=== PATIENT | female | born 1935 | race Caucasian/White ===

== ENCOUNTER → 2017-08-31 | Outpatient (CLI) | payer MEDICARE ==
[2017-08-31 16:57] LABS: BUN/CREATININE RATIO 17.9 (6.0-26.0); CALCIUM 9.3 mg/dL (8.4-10.2); POTASSIUM 4.3 mmol/L (3.6-5.0)
== END ==
LOC: RAD 16:09
PROVIDERS: Family Medicine
DX: M79.671 Pain in right foot (principal); M25.571 Pain in right ankle and joints of right foot; M10.9 Gout, unspecified; I48.91 Unspecified atrial fibrillation; I10 Essential (primary) hypertension

== ENCOUNTER → 2017-09-15 | Outpatient (CLI) | payer MEDICARE ==
[2017-09-15 08:31] LABS: BUN/CREATININE RATIO 16.4 (6.0-26.0); POTASSIUM 4.3 mmol/L (3.6-5.0)
== END ==
LOC: LAB 08:02
PROVIDERS: Family Medicine
DX: I50.31 Acute diastolic (congestive) heart failure (principal)

== ENCOUNTER → 2019-08-19 | Outpatient (CLI) | payer MEDICARE ==
[2019-08-19 12:38] LABS: URINE WBC 0 /hpf (0-3)
[2019-08-19 12:52] LABS: ALBUMIN 4.2 g/dL (3.4-4.8); POTASSIUM 3.9 mmol/L (3.5-5.1)
[2019-08-19 12:53] LABS: CALCIUM 9.6 mg/dL (8.3-10.5)
[2019-08-19 12:55] LABS: TOTAL PROTEIN 6.9 g/dL (6.2-8.1)
[2019-08-19 12:56] LABS: TOTAL BILIRUBIN 0.6 mg/dL (0.2-1.2)
[2019-08-19 13:13] LABS: URINE APPEARANCE CLEAR; URINE BILIRUBIN NEGATIVE (NEGATIVE); URINE BLOOD 50 ery/uL (NEGATIVE); URINE COLOR YELLOW; URINE GLUCOSE NEGATIVE (NEGATIVE); URINE KETONE NEGATIVE (NEGATIVE); URINE LEUKOCYTE ESTERASE NEGATIVE (NEGATIVE); URINE MUCUS PRESENT (NOT PRESENT); URINE NITRATE NEGATIVE (NEGATIVE); URINE PROTEIN(semi-quant) NEGATIVE (NEGATIVE); URINE UROBILINOGEN NORMAL (NORMAL)
== END ==
LOC: LAB 12:19 → RAD 12:19
PROVIDERS: Family Medicine
DX: M16.11 Unilateral primary osteoarthritis, right hip (principal); M10.9 Gout, unspecified; I10 Essential (primary) hypertension; I48.91 Unspecified atrial fibrillation; R35.8 Other polyuria

== ENCOUNTER 2020-11-02 15:54 | Emergency (ER) | payer MEDICARE ==
[2020-11-02 16:07] VITALS: BP 148/101
[2020-11-02] MEDS ORDERED: TYLENOL W CODEIN1 ML PO (16:15)
[2020-11-02] MEDS ORDERED: CARDIZEM CD 18180 MG PO (16:15)
[2020-11-02] MEDS ORDERED: FUROSEMIDE20 MG PO (16:16)
[2020-11-02] MEDS ORDERED: METOPROLOL TAR100 M1 PO (16:16)
[2020-11-02] MEDS ORDERED: LOSARTAN POTASS50 M1 PO (16:16)
[2020-11-02] MEDS ORDERED: COQ1050 MG PO (16:16)
[2020-11-02] MEDS ORDERED: WARFARIN SOD2 MG PO (16:17)
[2020-11-02 16:29] LABS: BASO # 0.04 (0.02-0.10); EOS # 0.13 (0.04-0.40); EOS % 1.6 % (1.0-5.0); HEMATOCRIT 39.3 % (37.0-47.0); HEMOGLOBIN 12.4 g/dL (12.5-16.0); MEAN CELL VOLUME 92 fl (78-100); MEAN CORPUSCULAR HEMOGLOBIN 29 pg (27-31); MEAN CORPUSCULAR HGB CONC 32 g/dL (33-37); MEAN PLATELET VOLUME 9.1 fl (7.4-10.4); MONO # 0.94 (0.20-0.80); NEU # 5.29 (1.40-6.50); PLATELET COUNT 221 K/mm3 (130-400); RED BLOOD COUNT 4.27 M/mm3 (4.10-5.30); RED CELL DISTRIBUTION WIDTH 14.3 % (11.5-14.5); WHITE BLOOD COUNT 7.9 K/mm3 (4.8-10.8)
[2020-11-02 16:43] LABS: ALBUMIN 3.6 g/dL (3.4-4.8); POTASSIUM 4.3 mmol/L (3.5-5.1)
[2020-11-02 16:44] LABS: CALCIUM 9.3 mg/dL (8.3-10.5)
[2020-11-02 16:45] LABS: TOTAL PROTEIN 6.4 g/dL (6.2-8.1)
[2020-11-02 16:47] LABS: TOTAL BILIRUBIN 0.5 mg/dL (0.2-1.2)
[2020-11-02 17:09] LABS: PARTIAL THROMBOPLASTIN TIME 23.1 SECONDS (21.0-32.0); PROTHROMBIN TIME 10.2 SECONDS (9.0-12.0)
== END 2020-11-02 17:53 | disposition home or self-care (01) ==
LOC: ED 15:54
PROVIDERS: Nurse Practitioner
DX: I89.0 Lymphedema, not elsewhere classified (principal); I48.91 Unspecified atrial fibrillation; I10 Essential (primary) hypertension; Z79.01 Long term (current) use of anticoagulants; Z91.14 Patient's other noncompliance with medication regimen; Z90.12 Acquired absence of left breast and nipple; Z79.899 Other long term (current) drug therapy